=== PATIENT | female | born 1995 | race Caucasian/White ===

== ENCOUNTER → 2017-03-21 | Outpatient (CLI) | payer OTHER ==
--- NOTE | 2017-03-23 08:42 | HM ---
Date Performed: 03/21/2017 Time Performed: 14:15:00 HOOKUP DATE: 03/21/17 02:15:00 PM Mon ANALYSIS START TIME: 03/21/2017 2:20:00 PM ANALYSIS END TIME: 03/22/2017 2:15:52 PM PATIENT AGE: 21 PATIENT HEIGHT PATIENT WEIGHT DRUG LIST PATIENT DIAGNOSIS: palpitations TEST NARRATIVE: The patient's average heart rate was 81 BPM. Heart rates greater than 120 B PM were noted 3% of the time. Heart rates less than 50 BPM were noted < 1% of the time. No pause s exceeding 2.0 seconds were noted. 163 ventricular ectopics, which represented < 1% of the total beat count, were noted. The highest ventricular ectopic frequency occurred from 04:00 PM to 05:00 P M Mon. During this time 23 VE(s) occurred. Ventricular ectopics were observed as 163 isolated beat( s) only. No couplets or runs were noted. 1 supraventricular ectopics, which represented < 1% of the total beat count, were noted. The highest supraventricular ectopic frequency occurred from 06:00 PM to 07:00 PM Mon. During this time 1 SVE(s) occurred. No episodes of ST depression (defined a s -1.0 mm or more) were noted in channel 1. No episodes of ST depression (defined as -1.0 mm or more ) were noted in channel 2. No episodes of ST depression (defined as -1.0 mm or more) were noted in c hannel 3. TEST INTERPRETATION: Benign Holter Monitor Signed by : Milton Daigle
== END ==
LOC: HCAV 13:36
PROVIDERS: ATTEND Obstetrics & Gynecology
DX: R00.2 Palpitations (principal)
CPT/HCPCS: 93225; 93226